=== PATIENT | male | born 1985 | race Caucasian/White ===

== ENCOUNTER 2023-03-30 16:59 | Emergency (ER) | payer MEDICAID ==
[~2023-03-30] VITALS: Ht 172.7 cm; Wt 70.8 kg
[~2023-03-30 16:59] MED LIST: LEVE750T6 PO; LORA1TAB PO; MONT-47 PO; NORCO10T PO
[2023-03-30 17:01] VITALS: BP 121/90; PULSE 94; TEMP 98; O2SAT 98
[2023-03-30] MEDS ORDERED: dexamethasone sod phosphate 10mg/ml inj IM STA (17:30)
[2023-03-30] MEDS ORDERED: ketorolac trometh inj. 60 MG/2 ML VIAL IM ONE (17:30)
[2023-03-30] MEDS ORDERED: cyclobenzaprine 10mg tablet PO ONE (17:30)
[2023-03-30] MEDS ORDERED: LIDOcaine 5% patch TP ONE (17:30)
[2023-03-30 17:53] VITALS: RESP 18
[2023-03-30] MEDS ORDERED: LIDO700A32 TOP (18:35)
[2023-03-30] MEDS ORDERED: CYCL-1 PO (18:35)
== END 2023-03-30 21:09 | disposition left against medical advice (07) ==
LOC: ER 16:59
DX: G89.29 Other chronic pain (principal); M54.9 Dorsalgia, unspecified; G43.909 Migraine, unspecified, not intractable, without status migrainosus; Z79.899 Other long term (current) drug therapy
CPT/HCPCS: 72100; 96372; 99284; J1100; J1885